=== PATIENT | male | born 1965 | race Caucasian/White ===

== ENCOUNTER 2017-08-07 13:46 | Inpatient (IN) | payer OTHER ==
[2017-08-07 15:49] VITALS: BMI 24.3
--- NOTE | 2017-08-07 17:50 | HP ---
COWS - Scale Resting Pulse: 0= [place] 80 or Below Sweatin= Chills/Flushing Restless Observation: 3= Extraneous Movement Pupil Size: 0= Normal to Room Light Bone or Joint Aches: 2= Severe Diffuse Aches Runny Nose/ Eye Tearin= Runny Nose/Eyes GI Upset > 30mins: 2= Nausea/Diarrhea Tremor Observation: 2= Slight Tremor Visible Yawning Observation: 0= None Anxiety or Irritability: 2=Irritable/Anxious Goose Flesh Skin: 0=Smooth Skin COWS Score: 14 Admission [facility] Chief Complaint: WITHDRAWAL SX Allergies/Adverse Reactions: Allergies Allergy/AdvReac Type Severity Reaction Status Date / Time No Known Allergies Allergy Verified 08/07/17 17:10 History of Present Illness: 52 YEARS OLD MALE WITH LONG HISTORY OF HEROIN NICOTINE DEPENDENCE HAS HIV SINCE 2004 TREATED WITH PREZCOBIX AND DESCOVY AND BACTRIM AND DEPRESSION IS ADMITTED TO DETOX Exam Limitations: No Limitations - Ebola screening Have you traveled outside of the country in the last 21 days: No Have you had contact with anyone from an Ebola affected area: No Have you been sick,other than usual withdrawal symptoms: No Do you have a fever: No - Review of Systems Constitutional: Loss of Appetite, Changes in sleep, Unintentional Wgt. Loss, Unexplained wgt Loss EENT: reports: No Symptoms Reported Respiratory: reports: No Symptoms reported Cardiac: reports: No Symptoms Reported GI: reports: Nausea, Poor Appetite, Poor Fluid Intake, Abdominal cramping : reports: No Symptoms Reported Musculoskeletal: reports: Back Pain, Joint Pain, Muscle Pain, Neck Pain Integumentary: reports: Change in Color (BOTH INNER ELBOWS) Neuro: reports: Tremors Endocrine: reports: No Symptoms Reported Hematology: reports: No Symptoms Reported Psychiatric: reports: Judgement Intact, Orientated x3, Anxious, Depressed Other Systems: Reviewed and Negative Patient History - Patient Medical History Hx Anemia: No Hx Asthma: No Hx Chronic Obstructive Pulmonary Disease (COPD): No Hx Cancer: No Hx Cardiac Disorders: No Hx Congestive Heart Failure: No Hx Hypertension: No Hx Hypercholesterolemia: No Hx Pacemaker: No HX Cerebrovascular Accident: No Hx Seizures: No Hx Dementia: No Hx Diabetes: No Hx Gastrointestinal Disorders: No Hx Liver Disease: No Hx Genitourinary Disorders: No Hx Sexually Transmitted Disorders: No Hx Renal Disease (ESRD): No Hx Thyroid Disease: No Hx Human Immunodeficiency Virus (HIV): Yes (2004) Hx Hepatitis C: No Hx Depression: Yes Hx Suicide Attempt: No Hx Bipolar Disorder: No Hx Schizophrenia: No - Patient Surgical History Past Surgical History: No Hx Neurologic Surgery: No Hx Cataract Extraction: No Hx Cardiac Surgery: No Hx Lung Surgery: No Hx Breast Surgery: No Hx Breast Biopsy: No Hx Abdominal Surgery: No Hx Appendectomy: No Hx Cholecystectomy: No Hx Genitourinary Surgery: No Hx Orthopedic Surgery: No - PPD History Previous Implant?: Yes Documented Results: Negative w/o proof Implanted On Prior R Admission?: No Date: 05/26/17 PPD to be Administered?: No - Smoking Cessation Smoking history: Current every day smoker Have you smoked in the past 12 months: Yes Aproximately how many cigarettes per day: 8 Cigars Per Day: 0 Hx Chewing Tobacco Use: No Initiated information on smoking cessation: Yes 'Breaking Loose' booklet given: 08/07/17 - Substance & Tx. History Hx Alcohol Use: No Hx Substance Use: Yes Substance Use Type: Cocaine, Heroin Hx Substance Use Treatment: Yes (05/2017 [facility]) - Substances Abused Heroin Route: Injection Frequency: Daily Amount used: 6 BAGS Age of first use: 19 Date of Last Use: 08/06/17 Alcohol Route: Oral Frequency: 1-2 times per week Amount used: 3-4 12 OZ CANS OF BEER Age of first use: 9 Date of Last Use: 08/03/17 Family Disease History - Family Disease History Family Disease History: Other: Father (/ALCOHOLISM) Admission Physical Exam S - Vital Signs Vital Signs: Vital Signs - 24 hr 08/07/17 15:48 Temperature 96.7 F L Pulse Rate 80 Respiratory 20 Rate Blood Pressure 131/69 - Physical General Appearance: Yes: Appropriately Dressed, Mild Distress, Thin, Tremorous, Irritable, Sweating, Anxious HEENTM: Yes: Hearing grossly Normal, Normal ENT Inspection, Normocephalic, Normal Voice Respiratory: Yes: Chest Non-Tender, Lungs Clear, Normal Breath Sounds, No Respiratory Distress, No Accessory Muscle Use Neck: Yes: Supple, Trachea in good position Breast: Yes: Breasts Symetrical Cardiology: Yes: Regular Rhythm, Regular Rate, S1, S2 Abdominal: Yes: Normal Bowel Sounds, Non Tender, Soft Genitourinary: Yes: Within Normal Limits Back: Yes: Normal Inspection Musculoskeletal: Yes: full range of Motion, Gait Steady, Back pain, Muscle Pain Extremities: Yes: Normal Range of Motion, Non-Tender, Tremors Neurological: Yes: Fully Oriented, Alert, Motor Strength 5/5, Normal Response, Depressed Affect Integumentary: Yes: Warm Lymphatic: Yes: Within Normal Limits - Diagnostic (1) Opioid dependence with withdrawal Current Visit: Yes Status: Acute (2) Nicotine dependence Current Visit: Yes Status: Acute Qualifiers: Nicotine product type: cigarettes Substance use status: in withdrawal Qualified Code(s): F17.213 - Nicotine dependence, cigarettes, with withdrawal (3) HIV (human immunodeficiency virus infection) Current Visit: Yes Status: Chronic (4) Weight loss Current Visit: Yes Status: Acute (5) Dry skin Current Visit: Yes Status: Chronic (6) Depression (emotion) Current Visit: Yes Status: Suspected Qualifiers: Depression Type: dysthymia Qualified Code(s): F34.1 - Dysthymic disorder (7) Hepatitis C carrier Current Visit: Yes Status: Resolved Cleared for Admission [facility] - Detox or Rehab [facility] Level of Care: Medically Managed Detox Regimen/Protocol: Methadone [facility] Breath Alcohol Content Breath Alcohol Content: 0 Urine Drug Screen - Results Drug Screen Negative: No Urine Drug Screen Results: JEANE-Cocaine, OPI-Opiates, BZO-Benzodiazepines, MTD- Methadone
[2017-08-07] MEDS ORDERED: IBUPROFEN 400 MG TABLET (FP) PO PRN (18:00)
[2017-08-07] MEDS ORDERED: MAG HYDROX/AL HYDROX/SIMETH 30 ML UNIT-DOSE CUP PO PRN (18:00)
[2017-08-07] MEDS ORDERED: P-EPHED 60MG/TRIPROLIDI 2.5MG TABLET PO PRN (18:00)
[2017-08-07] MEDS ORDERED: guaiFENesin/D-METHORPHAN HB 10 ML UNIT-DOSE CUPS PO PRN (18:00)
[2017-08-07] MEDS ORDERED: MAGNESIUM HYDROX 2400MG/30ML ORAL SUSPENSION 30 ML CUP PO PRN (18:00)
[2017-08-07] MEDS ORDERED: MAGNESIUM CITRATE 300 ML BOTTLE PO PRN (18:00)
[2017-08-07] MEDS ORDERED: MENTHOL/PHENOL 1 EACH UD MM PRN (18:00)
[2017-08-07] MEDS ORDERED: NICOTINE POLACRILEX 2 MG GUM BC PRN (18:00)
[2017-08-07] MEDS ORDERED: ACETAMINOPHEN 325 MG TABLET (FP) PO PRN (18:00)
[2017-08-07] MEDS ORDERED: LOPERAMIDE HCL 2 MG CAPSULE PO PRN (18:00)
[2017-08-07] MEDS ORDERED: METHADONE HCL 10 MG TABLET (FOR DETOX USE ONLY) PO ONE ×2 (19:45→23:00)
[2017-08-07] MEDS ORDERED: METHADONE HCL 10 MG TABLET (FOR DETOX USE ONLY) ONE (22:28)
[2017-08-07] MEDS: SULFAMETHOXAZOLE/TRIMETHOPRIM 800MG/160MG D.S. TABLET PO SCH (22:43)
[2017-08-07] MEDS: THIAMINE HCL 100 MG TABLET (FP) PO SCH (22:44)
[2017-08-07] MEDS: diazePAM 5 MG TABLET PO PRN (22:44)
[2017-08-07] MEDS: MINERAL OIL/PETROLAT/WATER TOPICAL CREAM 113 GM JAR TP SCH (22:45)
[2017-08-07 23:21] LABS: URINE APPEARANCE SLCLOUDY; URINE BILIRUBIN NEGATIVE (NEGATIVE); URINE BLOOD NEGATIVE (NEGATIVE); URINE COLOR AMBER; URINE GLUCOSE (UA) NEGATIVE (NEGATIVE); URINE KETONE NEGATIVE (NEGATIVE); URINE LEUK ESTERASE NEGATIVE (NEGATIVE); URINE NITRITE NEGATIVE (NEGATIVE); URINE PROTEIN NEGATIVE (NEGATIVE)
[2017-08-08] MEDS: diazePAM 5 MG TABLET PO PRN ×3 (05:30→19:33)
[2017-08-08 09:55] LABS: MCH 31.9 pg (25.7-33.7); MCHC 33.6 g/dl (32.0-35.9); MEAN PLT VOLUME 7.6 fl (7.5-11.1); PLATELET COUNT 258 K/MM3 (134-434); RDW 14.7 % (11.9-15.9); WHITE BLOOD COUNT 3.8 K/mm3 (4.0-10.0)
[2017-08-08] MEDS ORDERED: METHADONE HCL 10 MG TABLET (FOR DETOX USE ONLY) PO ONE (10:00)
--- NOTE | 2017-08-08 10:08 | CONSULT ---
[facility] Psychiatric Consult - Data Date of interview: 08/08/17 Admission source: [facility] Identifying data: Mr Julio is a 52 years old male, unemployed on [employer], homeless seeking detox treatment for alcohol and heroin Substance Abuse History: Reports history of alcohol and heroin use. He started drinking alcohol at age 9, consumes 3-4x 12oz of beer 1-2 times weekly. Last drink on 08/03/17 . He started using heroin at age 19, consumes 6 bags daily. Last used on 08/06/17 Medical History: Significant for HIV diagnosed in 2004 and hepatitis c. Smokes 8 cigarettes daily Psychiatric History: Denies history of previous psychiatric treatment Physical/Sexual Abuse/Trauma History: Denies history of verbal, physical or sexual abuse Mental Status Exam - Mental Status Exam Alert and Oriented to: Time, Person Cognitive Function: Fair Mood: Depressed (mildly) Affect: Appropriate Patient Behavior: Cooperative Speech Pattern: Clear Voice Loudness: Normal Thought Process: Intact, Goal Oriented Thought Disorder: Not Present Hallucinations: Denies Suicidal Ideation: Denies Insight/Judgement: Poor Sleep: Fair Appetite: Good Muscle strength/Tone: Normal Gait/Station: Normal Psychiatric Findings - Problem List ([place] 1, 2,3) (1) Substance induced mood disorder Current Visit: Yes Status: Acute (2) Opioid dependence Current Visit: Yes Status: Acute (3) Alcohol abuse Current Visit: Yes Status: Acute (4) Nicotine dependence Current Visit: Yes Status: Acute Qualifiers: Nicotine product type: cigarettes Substance use status: in withdrawal Qualified Code(s): F17.213 - Nicotine dependence, cigarettes, with withdrawal (5) HIV (human immunodeficiency virus infection) Current Visit: Yes Status: Chronic (6) Hepatitis C carrier Current Visit: Yes Status: Resolved - Initial Treatment Plan Initial Treatment Plan: Continue inpatient detoxification
[2017-08-08] MEDS: PATIENT'S OWN MEDICATION (NON-FORMULARY) (Emtricitabine/Tenofov Alafenam [Descovy 200-25 M PO SCH (10:15)
[2017-08-08] MEDS: SULFAMETHOXAZOLE/TRIMETHOPRIM 800MG/160MG D.S. TABLET PO SCH ×2 (10:16→22:04)
[2017-08-08] MEDS: PATIENT'S OWN MEDICATION (NON-FORMULARY) (Darunavir/Cobicistat [Prezcobix 800 Mg-150 Mg Ta PO SCH (10:16)
[2017-08-08] MEDS: PRENATAL VITAMINS W/ FOLIC ACID TABLET (FP) PO SCH (10:16)
[2017-08-08] MEDS: NICOTINE 14 MG/24 HOURS TOPICAL PATCH TD SCH (10:18)
[2017-08-08 10:28] LABS: ALBUMIN 3.2 g/dl (3.4-5.0); ALK PHOS 55 U/L (45-117); ANION GAP 7 (8-16); BILIRUBIN,TOTAL 0.2 mg/dL (0.2-1.0); CALCIUM 8.4 mg/dL (8.5-10.1); CO2 27 mmol/L (21-32); GLUCOSE,RANDOM 82 mg/dL (74-106); SGOT/AST 22 U/L (15-37); SGPT/ALT 21 U/L (12-78); TOT PROT 5.6 g/dl (6.4-8.2)
--- NOTE | 2017-08-08 11:17 | PN ---
[facility] COWS - Scale Resting Pulse: 0= [place] 80 or Below Sweatin= Chills/Flushing Restless Observation: 1= Difficult to Sit Still Pupil Size: 0= Normal to Room Light Bone or Joint Aches: 2= Severe Diffuse Aches Runny Nose/ Eye Tearin= Runny Nose/Eyes GI Upset > 30mins: 1= Stomach Cramp Tremor Observation of Outstretched Hands: 0= None Yawning Observation: 1= 1-2x During Session Anxiety or Irritability: 2=Irritable/Anxious Goose Flesh Skin: 3=Piloerection COWS Score: 13 S Progress Note (SOAP) Subjective: Fatigue, Anxious, Body Aches. Objective: PT. A & O X 3. NO ACUTE DISTRESS. 08/08/17 11:14 Vital Signs Temperature 98.2 F 08/08/17 09:02 Pulse Rate 77 08/08/17 09:02 Respiratory Rate 16 08/08/17 09:02 Blood Pressure 116/75 08/08/17 09:02 O2 Sat by Pulse Oximetry (%) Laboratory Tests 08/07/17 08/08/17 08/08/17 23:10 07:00 07:00 WBC 3.8 L RBC 3.93 L Hgb 12.5 Hct 37.4 MCV 95.0 MCH 31.9 MCHC 33.6 RDW 14.7 Plt Count 258 MPV 7.6 Sodium 142 Potassium 3.6 Chloride 108 H Carbon Dioxide 27 Anion Gap 7 L BUN 9 Creatinine 1.0 Creat Clearance w eGFR > 60 Random Glucose 82 Calcium 8.4 L Total Bilirubin 0.2 AST 22 ALT 21 Alkaline Phosphatase 55 Total Protein 5.6 L Albumin 3.2 L Urine Color Sally Urine Appearance Slcloudy Urine pH 5.0 Ur Specific [place] >= 1.030 H Urine Protein Negative Urine Glucose (UA) Negative Urine Ketones Negative Urine Blood Negative Urine Nitrite Negative Urine Bilirubin Negative Urine Urobilinogen 2.0 LABS NOTED. RPR RESULT PENDING. 08/08/17 11:16 Assessment: 08/08/17 11:15 WITHDRAWAL SYMPTOMS. Plan: CONTINUE DETOX.
[2017-08-08] MEDS: diphenhydrAMINE HCL 50 MG CAPSULE PO PRN (22:04)
[2017-08-08] MEDS: THIAMINE HCL 100 MG TABLET (FP) PO SCH (22:04)
[2017-08-08] MEDS: MINERAL OIL/PETROLAT/WATER TOPICAL CREAM 113 GM JAR TP SCH (22:05)
--- NOTE | 2017-08-08 22:27 | EKG ---
Test Reason : Blood Pressure : / mmHG Vent. Rate : 064 BPM Atrial Rate : 064 BPM P-R Int : 120 ms QRS Dur : 096 ms QT Int : 414 ms P-R-T Axes : 021 046 043 degrees QTc Int : 427 ms NORMAL SINUS RHYTHM NORMAL ECG NO PREVIOUS ECGS AVAILABLE Confirmed by MIRA KHAN MD ([id number]) on 08/08/2017 10:26:44 PM Referred By: Confirmed By:MIRA KHAN MD
[2017-08-09] MEDS ORDERED: METHADONE HCL 5 MG TABLET (FOR DETOX USE ONLY) PO ONE (10:00)
[2017-08-09] MEDS: PATIENT'S OWN MEDICATION (NON-FORMULARY) (Emtricitabine/Tenofov Alafenam [Descovy 200-25 M PO SCH (10:08)
[2017-08-09] MEDS: PATIENT'S OWN MEDICATION (NON-FORMULARY) (Darunavir/Cobicistat [Prezcobix 800 Mg-150 Mg Ta PO SCH (10:08)
[2017-08-09] MEDS: SULFAMETHOXAZOLE/TRIMETHOPRIM 800MG/160MG D.S. TABLET PO SCH ×2 (10:09→22:03)
[2017-08-09] MEDS: PRENATAL VITAMINS W/ FOLIC ACID TABLET (FP) PO SCH (10:09)
[2017-08-09] MEDS: NICOTINE 14 MG/24 HOURS TOPICAL PATCH TD SCH (10:10)
--- NOTE | 2017-08-09 15:18 | PN ---
S COWS - Scale Resting Pulse: 0= [place] 80 or Below Sweatin= Chills/Flushing Restless Observation: 1= Difficult to Sit Still Pupil Size: 0= Normal to Room Light Bone or Joint Aches: 2= Severe Diffuse Aches Runny Nose/ Eye Tearin= Nasal Congestion GI Upset > 30mins: 1= Stomach Cramp Tremor Observation of Outstretched Hands: 2= Slight Tremor Visible Yawning Observation: 2= >3x During Session Anxiety or Irritability: 2=Irritable/Anxious Goose Flesh Skin: 3=Piloerection COWS Score: 15 S Progress Note (SOAP) Subjective: Body Aches, Tremors, Sweating, Chills, Fatigue. Objective: PT. A & O X 3. NO ACUTE DISTRESS. 08/09/17 15:16 Vital Signs Temperature 97.3 F L 08/09/17 13:52 Pulse Rate 66 08/09/17 13:52 Respiratory Rate 18 08/09/17 13:52 Blood Pressure 107/71 08/09/17 13:52 O2 Sat by Pulse Oximetry (%) Laboratory Tests 08/07/17 08/08/17 08/08/17 23:10 07:00 07:00 WBC 3.8 L RBC 3.93 L Hgb 12.5 Hct 37.4 MCV 95.0 MCH 31.9 MCHC 33.6 RDW 14.7 Plt Count 258 MPV 7.6 Sodium 142 Potassium 3.6 Chloride 108 H Carbon Dioxide 27 Anion Gap 7 L BUN 9 Creatinine 1.0 Creat Clearance w eGFR > 60 Random Glucose 82 Calcium 8.4 L Total Bilirubin 0.2 AST 22 ALT 21 Alkaline Phosphatase 55 Total Protein 5.6 L Albumin 3.2 L Urine Color Sally Urine Appearance Slcloudy Urine pH 5.0 Ur Specific [place] >= 1.030 H Urine Protein Negative Urine Glucose (UA) Negative Urine Ketones Negative Urine Blood Negative Urine Nitrite Negative Urine Bilirubin Negative Urine Urobilinogen 2.0 RPR Titer 08/08/17 07:00 WBC RBC Hgb Hct MCV MCH MCHC RDW Plt Count MPV Sodium Potassium Chloride Carbon Dioxide Anion Gap BUN Creatinine Creat Clearance w eGFR Random Glucose Calcium Total Bilirubin AST ALT Alkaline Phosphatase Total Protein Albumin Urine Color Urine Appearance Urine pH Ur Specific [place] Urine Protein Urine Glucose (UA) Urine Ketones Urine Blood Urine Nitrite Urine Bilirubin Urine Urobilinogen RPR Titer Nonreactive labs noted. Assessment: 08/09/17 15:17 WITHDRAWAL SYMPTOMS. Plan: CONTINUE DETOX.
[2017-08-09] MEDS: diazePAM 5 MG TABLET PO PRN ×2 (18:25→22:45)
[2017-08-09] MEDS: THIAMINE HCL 100 MG TABLET (FP) PO SCH (22:03)
[2017-08-09] MEDS: diphenhydrAMINE HCL 50 MG CAPSULE PO PRN (22:03)
[2017-08-09] MEDS: MINERAL OIL/PETROLAT/WATER TOPICAL CREAM 113 GM JAR TP SCH (22:04)
[2017-08-10] MEDS ORDERED: METHADONE HCL 5 MG TABLET (FOR DETOX USE ONLY) PO ONE (10:00)
[2017-08-10] MEDS: PATIENT'S OWN MEDICATION (NON-FORMULARY) (Darunavir/Cobicistat [Prezcobix 800 Mg-150 Mg Ta PO SCH (10:11)
[2017-08-10] MEDS: PATIENT'S OWN MEDICATION (NON-FORMULARY) (Emtricitabine/Tenofov Alafenam [Descovy 200-25 M PO SCH (10:12)
[2017-08-10] MEDS: SULFAMETHOXAZOLE/TRIMETHOPRIM 800MG/160MG D.S. TABLET PO SCH ×2 (10:13→22:05)
[2017-08-10] MEDS: PRENATAL VITAMINS W/ FOLIC ACID TABLET (FP) PO SCH (10:14)
[2017-08-10] MEDS: NICOTINE 14 MG/24 HOURS TOPICAL PATCH TD SCH (10:14)
--- NOTE | 2017-08-10 14:46 | PN ---
[facility] Progress Note (SOAP) Subjective: Sweating,interrupted sleep,restless Objective: 08/10/17 14:45 Vital Signs - 8 hr 08/10/17 08/10/17 08/10/17 09:32 09:40 12:59 Temperature 97.5 F L 97.5 F L 97.3 F L Pulse Rate 57 L 57 L 61 Respiratory 18 18 18 Rate Blood Pressure 107/67 107/67 105/73 Laboratory Last Values WBC 3.8 K/mm3 (4.0-10.0) L 08/08/17 07:00 RBC 3.93 M/mm3 (4.00-5.60) L 08/08/17 07:00 Hgb 12.5 GM/dL (11.7-16.9) 08/08/17 07:00 Hct 37.4 % (35.4-49) 08/08/17 07:00 MCV 95.0 fl (80-96) 08/08/17 07:00 MCH 31.9 pg (25.7-33.7) 08/08/17 07:00 MCHC 33.6 g/dl (32.0-35.9) 08/08/17 07:00 RDW 14.7 % (11.9-15.9) 08/08/17 07:00 Plt Count 258 K/MM3 (134-434) 08/08/17 07:00 MPV 7.6 fl (7.5-11.1) 08/08/17 07:00 Sodium 142 mmol/L (136-145) 08/08/17 07:00 Potassium 3.6 mmol/L (3.5-5.1) 08/08/17 07:00 Chloride 108 mmol/L (98-107) H 08/08/17 07:00 Carbon Dioxide 27 mmol/L (21-32) 08/08/17 07:00 Anion Gap 7 (8-16) L 08/08/17 07:00 BUN 9 mg/dL (7-18) 08/08/17 07:00 Creatinine 1.0 mg/dL (0.7-1.3) 08/08/17 07:00 Creat Clearance w eGFR > 60 (>60) 08/08/17 07:00 Random Glucose 82 mg/dL (74-106) 08/08/17 07:00 Calcium 8.4 mg/dL (8.5-10.1) L 08/08/17 07:00 Total Bilirubin 0.2 mg/dL (0.2-1.0) 08/08/17 07:00 AST 22 U/L (15-37) 08/08/17 07:00 ALT 21 U/L (12-78) 08/08/17 07:00 Alkaline Phosphatase 55 U/L (45-117) 08/08/17 07:00 Total Protein 5.6 g/dl (6.4-8.2) L 08/08/17 07:00 Albumin 3.2 g/dl (3.4-5.0) L 08/08/17 07:00 Urine Color Sally 08/07/17 23:10 Urine Appearance Slcloudy 08/07/17 23:10 Urine pH 5.0 (5.0-8.0) 08/07/17 23:10 Ur Specific [place] >= 1.030 (1.005-1.025) H 08/07/17 23:10 Urine Protein Negative (NEGATIVE) 08/07/17 23:10 Urine Glucose (UA) Negative (NEGATIVE) 08/07/17 23:10 Urine Ketones Negative (NEGATIVE) 08/07/17 23:10 Urine Blood Negative (NEGATIVE) 08/07/17 23:10 Urine Nitrite Negative (NEGATIVE) 08/07/17 23:10 Urine Bilirubin Negative (NEGATIVE) 08/07/17 23:10 Urine Urobilinogen 2.0 mg/dL (0.2-1.0) 08/07/17 23:10 RPR Titer Nonreactive (NONREACTIVE) 08/08/17 07:00 labs noted Assessment: 08/10/17 14:46 Withdrawal sx. Plan: Continue detox
[2017-08-10] MEDS ORDERED: METHADONE HCL 10 MG TABLET (FOR DETOX USE ONLY) PO ONE (15:13)
[2017-08-10] MEDS: diazePAM 5 MG TABLET PO PRN (17:07)
[2017-08-10] MEDS: diphenhydrAMINE HCL 50 MG CAPSULE PO PRN (22:05)
[2017-08-10] MEDS: THIAMINE HCL 100 MG TABLET (FP) PO SCH (22:05)
[2017-08-10] MEDS: MINERAL OIL/PETROLAT/WATER TOPICAL CREAM 113 GM JAR TP SCH (22:40)
[2017-08-11] MEDS ORDERED: METHADONE HCL 5 MG TABLET (FOR DETOX USE ONLY) PO ONE (06:00)
--- NOTE | 2017-08-11 08:32 | DS ---
[facility] Detox Discharge Summary Admission Date: 08/07/17 Discharge Date: 08/11/17 - History Present History: Cocaine Dependence, Opioid Dependence Additional Comments: DETOX COMPLETED. ALERT O X 3. NAD. PATIENT REMINDED TO FOLLOW UP WITH HIS PMD, DR COLTEN HASTINGS AT [facility] FOR MEDICAL MANAGEMENT OF HIS COMORBID CONDITIONS. PT STATES HE IS GOING TO [facility] TO BE SET UP BY HIS COUNSELOR AT THE [facility]. Pertinent Past History: HIV+ HX - Physical Exam Results Vital Signs: Vital Signs Temperature 97.8 F 08/10/17 21:40 Pulse Rate 69 08/10/17 21:40 Respiratory Rate 18 08/11/17 03:30 Blood Pressure 102/71 08/10/17 21:40 O2 Sat by Pulse Oximetry (%) Pertinent Admission Physical Exam Findings: WITHDRAWAL SX Laboratory Last Values WBC 3.8 K/mm3 (4.0-10.0) L 08/08/17 07:00 RBC 3.93 M/mm3 (4.00-5.60) L 08/08/17 07:00 Hgb 12.5 GM/dL (11.7-16.9) 08/08/17 07:00 Hct 37.4 % (35.4-49) 08/08/17 07:00 MCV 95.0 fl (80-96) 08/08/17 07:00 MCH 31.9 pg (25.7-33.7) 08/08/17 07:00 MCHC 33.6 g/dl (32.0-35.9) 08/08/17 07:00 RDW 14.7 % (11.9-15.9) 08/08/17 07:00 Plt Count 258 K/MM3 (134-434) 08/08/17 07:00 MPV 7.6 fl (7.5-11.1) 08/08/17 07:00 Sodium 142 mmol/L (136-145) 08/08/17 07:00 Potassium 3.6 mmol/L (3.5-5.1) 08/08/17 07:00 Chloride 108 mmol/L (98-107) H 08/08/17 07:00 Carbon Dioxide 27 mmol/L (21-32) 08/08/17 07:00 Anion Gap 7 (8-16) L 08/08/17 07:00 BUN 9 mg/dL (7-18) 08/08/17 07:00 Creatinine 1.0 mg/dL (0.7-1.3) 08/08/17 07:00 Creat Clearance w eGFR > 60 (>60) 08/08/17 07:00 Random Glucose 82 mg/dL (74-106) 08/08/17 07:00 Calcium 8.4 mg/dL (8.5-10.1) L 08/08/17 07:00 Total Bilirubin 0.2 mg/dL (0.2-1.0) 08/08/17 07:00 AST 22 U/L (15-37) 08/08/17 07:00 ALT 21 U/L (12-78) 08/08/17 07:00 Alkaline Phosphatase 55 U/L (45-117) 08/08/17 07:00 Total Protein 5.6 g/dl (6.4-8.2) L 08/08/17 07:00 Albumin 3.2 g/dl (3.4-5.0) L 08/08/17 07:00 Urine Color Sally 08/07/17 23:10 Urine Appearance Slcloudy 08/07/17 23:10 Urine pH 5.0 (5.0-8.0) 08/07/17 23:10 Ur Specific [place] >= 1.030 (1.005-1.025) H 08/07/17 23:10 Urine Protein Negative (NEGATIVE) 08/07/17 23:10 Urine Glucose (UA) Negative (NEGATIVE) 08/07/17 23:10 Urine Ketones Negative (NEGATIVE) 08/07/17 23:10 Urine Blood Negative (NEGATIVE) 08/07/17 23:10 Urine Nitrite Negative (NEGATIVE) 08/07/17 23:10 Urine Bilirubin Negative (NEGATIVE) 08/07/17 23:10 Urine Urobilinogen 2.0 mg/dL (0.2-1.0) 08/07/17 23:10 RPR Titer Nonreactive (NONREACTIVE) 08/08/17 07:00 - Treatment Hospital Course: Detox Protocol Followed, Detoxed Safely, Responded well, Discharged Condition Good - Medication Discharge Medications: Ambulatory Orders Darunavir/Cobicistat [Prezcobix 800 mg-150 mg Tablet] 1 each PO DAILY 08/07/17 Emtricitabine/Tenofov Alafenam [Descovy 200-25 mg Tablet] 1 each PO DAILY Multivitamin with Iron [Daily Lisa with Iron] 1 each PO DAILY 08/07/17 Sulfamethoxazole/Trimethoprim [Bactrim Ds -] 1 tab PO BID 08/07/17 - Diagnosis (1) Nicotine dependence Current Visit: Yes Status: Acute Qualifiers: Nicotine product type: cigarettes Substance use status: in withdrawal Qualified Code(s): F17.213 - Nicotine dependence, cigarettes, with withdrawal (2) HIV (human immunodeficiency virus infection) Current Visit: Yes Status: Chronic (3) Hepatitis C carrier Current Visit: Yes Status: Resolved (4) Weight loss Current Visit: Yes Status: Acute (5) Dry skin Current Visit: Yes Status: Chronic - AMA Did Patient Leave Against Medical Advice: No
[2017-08-11 09:51] VITALS: BP 109/78; PULSE 74; TEMP 96.7
[2017-08-11] MEDS ORDERED: METHADONE HCL 10 MG TABLET (FOR DETOX USE ONLY) PO ONE (10:00)
[2017-08-12] MEDS ORDERED: METHADONE HCL 5 MG TABLET (FOR DETOX USE ONLY) PO ONE (06:00)
== END 2017-08-11 09:40 | disposition left against medical advice (07) | DRG 770 ==
LOC: YASAS 13:46 → Y3N 20:11
PROVIDERS: ADMIT Internal Medicine; ATTEND Internal Medicine
PROC: HZ2ZZZZ Detoxification Services for Substance Abuse Treatment (ICD-10-PCS; principal; 2017-08-07)
DX: F11.23 Opioid dependence with withdrawal (principal); F14.20 Cocaine dependence, uncomplicated; F17.210 Nicotine dependence, cigarettes, uncomplicated; F19.24 Other psychoactive substance dependence with psychoactive substance-induced mood disorder; F32.9 Major depressive disorder, single episode, unspecified; Z21 Asymptomatic human immunodeficiency virus [HIV] infection status; B18.2 Chronic viral hepatitis C; L85.3 Xerosis cutis; R63.4 Abnormal weight loss; Z68.24 Body mass index [BMI] 24.0-24.9, adult
CPT/HCPCS: 36415; 80053; 81003; 85027; 86593; 93005; 93010